=== PATIENT | female | born 1985 | race Caucasian/White ===

== ENCOUNTER 2017-10-16 23:20 | Emergency (ER) | payer MEDICAID ==
--- NOTE | 2017-10-16 23:27 | EDPHY ---
H & P Stated Complaint: arm pain Time Seen by Provider: 10/16/17 23:26 HPI/ROS: 32 yo F noticed swelling in her armpit earlier today and squeezed it, she states she got alot of pus out of it, but now has pain in her inner upper arm adjacent to the area that she squeezed. She feels fatigued, chills and possible fever. No known allergies to antibiotics. Review of systems as per hpi General no fever , pos chills, pos fatigue HEENT no eye pain no eye discharge. No eye redness, no sore throat Respiratory no cough, no shortness of breath Cardiac no chest pain, no peripheral edema GI no abdominal pain, no diarrhea, no constipation, no nausea, no vomiting no flank pain, no hematuria, no dysuria Musculoskeletal no myalgias, no joint pain Heme no easy bruising, no easy bleeding Endo no polyuria, no polydipsia Skin pos rashes, no pruritus Neuro no syncope, no dizziness, no headaches Psych is no suicidal ideation, no homicidal ideation Source: Patient Exam Limitations: No limitations - Personal History LMP (Females 10-55): Unknown Current Tetanus Diphtheria and Acellular Pertussis (TDAP): Yes - Medical/Surgical History Hx Asthma: No Hx Chronic Respiratory Disease: No Hx Diabetes: No Hx Cardiac Disease: No Hx Renal Disease: No Hx Cirrhosis: No Hx Alcoholism: No Hx HIV/AIDS: No Hx Splenectomy or Spleen Trauma: No Other PMH: ulcertive colitis, multiple colostomies, pulmonary embolus,. prior hx of opiod dependence - Family History Significant Family History: No pertinent family hx - Social History Smoking Status: Current every day smoker Alcohol Use: None Drug Use: None - Physical Exam Exam: 32 yo F alert and oriented in mild distress secondary to arm pain temp 37.6, tachycardia at,nc neck supple lungs cta bilat heart rapid rate rr abd nabs soft ext no cce except right inner upper arm indurated erythematous area 3 x 6 cm extending from axilla, at upper most part of rash there is a small sal, where there is evidence of prior drainage Constitutional: Initial Vital Signs Temperature (C) 37.6 C 10/16/17 23:20 Heart Rate 116 H 10/16/17 23:20 Respiratory Rate 16 10/16/17 23:20 Blood Pressure 149/109 H 10/16/17 23:20 O2 Sat (%) 96 10/16/17 23:20 O2 Delivery Mode Room Air Allergies/Adverse Reactions: No Known Allergies Allergy (Unverified 10/16/17 23:36) Home Medications: Medication Instructions Recorded Amitriptyline HCl 10/16/17 Buspar (*) 10/16/17 Cymbalta 10/16/17 Gabapentin 10/16/17 Cephalexin 500 mg PO QID 7 Days #28 tablet 10/17/17 Sulfamethox/Tmp 800/160 mg 1 tab PO BID #14 tab 10/17/17 [Bactrim Ds] Medical Decision Making Procedures: Needle aspiration Cleansed with alcohol wipes. 1 cc of 2% lidocaine subcutaneous, followed by 18 gauge needle aspiration , no drainage on aspiration Area bandaged Pt tolerated well ED Course/Re-evaluation: Pt seen and evaluated for rash and arm pain. Abscess drained by patient earlier today, now with residual induration, cellulitis, no area of fluctuance to be drained Labs sent Lactate wnl BMP CBC Pt given 2 gm Vancomycin given Acetaminophen and ibuprofen for pain, fever Imp Abscess drained at home, now with cellulitis Plan Home on antibiotics to cover mrsa warm compresses follow up with pcp if able to Return if increasing swelling, pain Infection may resolve with antibiotics or may require drainage in a few days. Differential Diagnosis: Differential diagnosis considered but not limited to: Abscess, abscess with cellulitis, cellulitis, sepsis, bacteremia - Data Points Laboratory Results: Laboratory Results 10/17/17 00:25 10/17/17 10/17/17 10/17/17 00:37 00:36 00:25 WBC 14.83 10^3/uL H 10^3/uL (3.80-9.50) RBC 4.42 10^6/uL 10^6/uL (4.18-5.33) Hgb 12.2 g/dL L g/dL (12.6-16.3) Hct 37.7 % L % (38.0-47.0) MCV 85.3 fL fL (81.5-99.8) MCH 27.6 pg L pg (27.9-34.1) MCHC 32.4 g/dL g/dL (32.4-36.7) RDW 14.9 % % (11.5-15.2) Plt Count 186 10^3/uL 10^3/uL (150-400) MPV 11.3 fL fL (8.7-11.7) Neut % (Auto) 81.7 % H % (39.3-74.2) Lymph % (Auto) 11.0 % L % (15.0-45.0) [place] % (Auto) 6.4 % % (4.5-13.0) Eos % (Auto) 0.4 % L % (0.6-7.6) Baso % (Auto) 0.2 % L % (0.3-1.7) Nucleat RBC Rel Count 0.0 % % (0.0-0.2) Absolute Neuts (auto) 12.11 10^3/uL H 10^3/uL (1.70-6.50) Absolute Lymphs (auto) 1.63 10^3/uL 10^3/uL (1.00-3.00) Absolute Monos (auto) 0.95 10^3/uL H 10^3/uL (0.30-0.80) Absolute Eos (auto) 0.06 10^3/uL 10^3/uL (0.03-0.40) Absolute Basos (auto) 0.03 10^3/uL 10^3/uL (0.02-0.10) Absolute Nucleated RBC 0.00 10^3/uL 10^3/uL (0-0.01) Immature Gran % 0.3 % % (0.0-1.1) Immature Gran # 0.05 10^3/uL 10^3/uL (0.00-0.10) POC Sodium 139 mEq/L mEq/L (135-145) POC Potassium 3.6 mEq/L mEq/L (3.3-5.0) POC Chloride 105.0 mEq/L mEq/L (97-110) POC Total CO2 22 mEq/L mEq/L (22-31) POC BUN 16 mg/dL mg/dL (7-23) POC Creatinine 0.9 mg/dL mg/dL (0.6-1.0) POC Glucose 89 mg/dL mg/dL (70-100) POC Lactic Acid Chase 0.9 mmol/L mmol/L (0.7-2.1) POC Calcium 9.2 mg/dL mg/dL (8.5-10.4) Medications Given: Discontinued Medications Acetaminophen (Tylenol) 1,000 mg PO EDNOW ONE Stop: 10/17/17 00:23 Last Admin: 10/17/17 00:45 Dose: 1,000 mg Diphenhydramine HCl (Benadryl Injection) 25 mg IVP EDNOW ONE Stop: 10/17/17 00:35 Last Admin: 10/17/17 00:45 Dose: 25 mg Diphenhydramine HCl (Benadryl Injection) 25 mg IVP EDNOW ONE Stop: 10/17/17 03:09 Last Admin: 10/17/17 03:16 Dose: 25 mg Sodium Chloride (Ns) 1,000 mls @ 0 mls/hr IV ONCE ONE PRN Reason: Wide Open Stop: 10/16/17 23:46 Last Admin: 10/17/17 00:45 Dose: 1,000 mls Vancomycin HCl 2 gm/ Sodium (Chloride) 500 mls @ 250 mls/hr IV EDNOW ONE PRN Reason: Protocol Stop: 10/17/17 01:45 Last Admin: 10/17/17 00:47 Dose: 500 mls Ibuprofen (Motrin) 600 mg PO EDNOW ONE Stop: 10/17/17 00:23 Last Admin: 10/17/17 00:44 Dose: 600 mg Point of Care Test Results: Chemistry 10/17/17 00:36 POC Sodium 139 mEq/L mEq/L (135-145) POC Potassium 3.6 mEq/L mEq/L (3.3-5.0) POC Chloride 105.0 mEq/L mEq/L (97-110) POC Total CO2 22 mEq/L mEq/L (22-31) POC BUN 16 mg/dL mg/dL (7-23) POC Creatinine 0.9 mg/dL mg/dL (0.6-1.0) POC Glucose 89 mg/dL mg/dL (70-100) POC Calcium 9.2 mg/dL mg/dL (8.5-10.4) Blood Gas/Lactic Acid-Venous 10/17/17 00:37 POC Lactic Acid Chase 0.9 mmol/L mmol/L (0.7-2.1) Departure - Departure Disposition: Home, Routine, Self-Care Clinical Impression: Cutaneous abscess of axilla, Cellulitis Condition: Good Instructions: Cellulitis (ED), Abscess (ED) Additional Instructions: acetaminophen every 4 hours as needed for pain or fever ibuprofen every 6 hours as needed for pain, must take with food warm compresses antibiotics- Cephalexin 4 times a day and Bactrim DS twice a day Referrals: Patient,NotPresent [Primary Care Provider] - As per Instructions [facility] [Provider Group] - As per Instructions Prescriptions: Cephalexin 500 mg PO QID 7 Days #28 tablet Sulfamethox/Tmp 800/160 mg [Bactrim Ds] 1 tab PO BID #14 tab
[2017-10-16] MEDS ORDERED: NS 1,000 ML IV ONE (23:45)
[2017-10-17] MEDS ORDERED: ACETAMINOPHEN 500 MG TAB PO ONE (00:22)
[2017-10-17] MEDS ORDERED: IBUPROFEN 600 MG TAB PO ONE (00:22)
[2017-10-17] MEDS: VANCOMYCIN 2 GM in NS 500 ML IV ONE ×2 (00:46→00:47)
[2017-10-17 02:06] LABS: PLATELET COUNT 186 10^3/uL (150-400)
[2017-10-17 04:39] VITALS: BP 104/73
== END 2017-10-17 04:39 | disposition home or self-care (01) ==
LOC: CED 23:20
PROC: 0H9BXZZ Drainage of Right Upper Arm Skin, External Approach (ICD-10-PCS; principal; 2017-10-16)
DX: L02.411 Cutaneous abscess of right axilla (principal); F17.200 Nicotine dependence, unspecified, uncomplicated
CPT/HCPCS: 80048-PO; 83605-PO; 96365; 96366; J1200; J3370

== ENCOUNTER 2017-10-19 08:31 | Emergency (ER) | payer MEDICAID ==
[2017-10-19] MEDS ORDERED: VANCOMYCIN 1 GM in NS 250 ML IV ONE (09:26)
--- NOTE | 2017-10-19 10:58 | EDPHY ---
H & P Time Seen by Provider: 10/19/17 08:38 HPI/ROS: CHIEF COMPLAINT: Under arm infection HISTORY OF PRESENT ILLNESS: Patient was seen on Thursday at this facility for draining abscess under her right armpit. She states that it began on Thursday and did have some draining that day prior to coming into the emergency department. She came in later in the evening on Thursday and needle aspiration was attempted without purulent drainage return. She was given IV antibiotics at that time and started on oral antibiotics. She states that she has been taking oral antibiotics as prescribed. She states that Thursday she was maybe a little bit better but not much. By Thursday there is increased redness, pain, swelling to the area as well as some itchy skin distal to the axilla. She has felt a little feverish in measured temperatures up to 99. She has had some consistent and persistent nausea but no vomiting. She has had no more spontaneous drainage from the axilla. REVIEW OF SYSTEMS: Contents of 10 point review of systems otherwise negative except for what is mentioned in HPI. General Appearance: Alert, no distress. Eyes: Pupils equal and round no icterus Respiratory: No respiratory distress Neurological: Awake, alert, no focal deficits. Skin: Warm and dry. Right axilla swollen, erythematous, palpable fluctuance diffusely. Additionally she has erythematous rash that spreads from the area of the abscesses to the distal mid upper arm. This rash is itchy as well as somewhat tender per patient's description. No bull eye, necrosis, crepitus. Musculoskeletal: Neck is supple nontender. Extremities are symmetrical, full range of motion, distal intact. Psychiatric: Patient is oriented X 3, there is no agitation. Medical/surgical history: Anxiety and depression. History of opiate abuse. History of PE treated with Xarelto for 6 months. Social history: Currently living in a treatment facility. Uses tobacco. Smoking Status: Current every day smoker Constitutional: Initial Vital Signs Temperature (C) 37.0 C 10/19/17 08:49 Heart Rate 103 H 10/19/17 08:49 Respiratory Rate 20 10/19/17 08:49 Blood Pressure 131/99 H 10/19/17 08:49 O2 Sat (%) 97 10/19/17 08:49 O2 Delivery Mode Room Air Allergies/Adverse Reactions: No Known Allergies Allergy (Verified 10/19/17 08:48) Home Medications: Medication Instructions Recorded Amitriptyline HCl 10/16/17 Buspar (*) 10/16/17 Cymbalta 10/16/17 Gabapentin 10/16/17 Cephalexin 500 mg PO QID 7 Days #28 tablet 10/17/17 Sulfamethox/Tmp 800/160 mg 1 tab PO BID #14 tab 10/17/17 [Bactrim Ds] Naltrexone 10/19/17 Medical Decision Making Procedures: Procedure: Abscess drainage at 11:15 a.m.. The patient's abscess was located on the right axilla. I obtained verbal consent from the patient to drain the abscess who was informed about the possibility of bleeding and pain. 5 mils of bupivacaine 1% with epi infiltrated. The abscess was incised with #15 scalpel and a large amount, 8-10 mls, of purulent drainage was expressed. I irrigated the wound and placed some packing. The patient tolerated the procedure well. The procedure was performed by myself. Differential Diagnosis: Differential diagnosis includes but is not limited to abscess, cellulitis, hidradenitis suppurativa, deep space infection, lymphadenopathy. After evaluation and treatment in the emergency department including incision and drainage large amount of purulent drainage was expressed from the multiple loculated abscesses in the right axilla. Surrounding/distal erythema more likely contact dermatitis than cellulitis but will continue outpatient antibiotics. Discussed wound care with patient and need for 48 hr wound recheck. Likely she will come here for that but may go to her primary care physician. Packing can be removed at that time if appropriate improvement is noted. Low suspicion for deep space involvement, necrotizing fasciitis or other surgical condition. Stable for discharge. - Data Points Medications Given: Discontinued Medications Diphenhydramine HCl (Benadryl Injection) 50 mg IVP EDNOW ONE Stop: 10/19/17 09:27 Last Admin: 10/19/17 10:14 Dose: 50 mg Vancomycin HCl 1 gm/ Sodium (Chloride) 250 mls @ 250 mls/hr IV EDNOW ONE PRN Reason: Protocol Stop: 10/19/17 10:25 Last Admin: 10/19/17 10:05 Dose: 250 mls Departure - Departure Disposition: Home, Routine, Self-Care Clinical Impression: Abscess Condition: Good Instructions: Abscess (ED) Additional Instructions: Keep area clean and covered as discussed. You can take a shower and get the area wet. Dry the wound and the packing material well before applying a bandage. If the packing comes out just cut the gauze but leave about 1 in on the surface. Return to the emergency department or follow up with her primary care physician in 48 hr, Thursday morning, without fail for wound check. Return earlier if you developed fevers, chills, other concerns of worsening infection. Continue antibiotics as previously prescribed. Referrals: Cathi Dash MD [Primary Care Provider] - As per Instructions
[2017-10-19 12:01] VITALS: BP 146/75
== END 2017-10-19 12:01 | disposition home or self-care (01) ==
LOC: CED 08:31
PROC: 0H9BXZZ Drainage of Right Upper Arm Skin, External Approach (ICD-10-PCS; principal; 2017-10-19)
DX: L02.411 Cutaneous abscess of right axilla (principal); F17.200 Nicotine dependence, unspecified, uncomplicated
CPT/HCPCS: 96365; J1200; J3370

== ENCOUNTER 2017-12-27 15:27 | Emergency (ER) | payer MEDICAID ==
[2017-12-27] MEDS ORDERED: ONDANSETRON 4 MG/2 ML VIAL IVP ONE (16:19)
[2017-12-27] MEDS ORDERED: NS 1,000 ML IV ONE (16:19)
--- NOTE | 2017-12-27 16:19 | EDPHY ---
H & P Stated Complaint: Epigastric abd pain x 2 days and itchy rash "all over body" Time Seen by Provider: 12/27/17 15:52 HPI/ROS: CHIEF COMPLAINT: Abdominal pain, dry itchy hands HISTORY OF PRESENT ILLNESS: 32-year-old female with history of ulcerative colitis which has resulted in multiple abdominal surgeries and patient states that she has had a total colectomy and has a internal pouch as well as having an internal hernia presents reporting 2 days of epigastric pain. Patient has been quite nauseous but not vomited. She states she has not had a bowel movement since last night which is unusual for her. Denies urinary complaints. No fevers or chills. No cold or cough symptoms. No flank pain. Patient does report that she has noticed a rash on her hands, especially on the right hand which is dry and itchy. No fever, chills, chest pain, shortness of breath, palpitations, vomiting, diarrhea, urinary complaints, headache, lightheadedness. REVIEW OF SYSTEMS: A comprehensive 10 system review of systems was reviewed and is otherwise negative aside from elements mentioned in the history of present illness and medical decision making. PAST MEDICAL HISTORY: Ulcerative colitis, anxiety, prior history of opiate addiction. SOCIAL HISTORY: Nonsmoker, no alcohol, no illicit drug use. 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 Recently moved here from [place]. VITAL SIGNS Reviewed by me. GENERAL: Well-developed, well-nourished, resting comfortably in no respiratory distress. Seems slightly anxious. HEENT: Atraumatic. Eyes: No icterus, no injection. Mouth: moist mucous membranes. No erythema or lesions. Neck: supple with no adenopathy. LUNGS: Clear to auscultation bilaterally, no wheezes, rhonchi or rales. CARDIAC: Tachycardic but regular. No rubs murmurs or gallops. ABDOMEN: Nondistended. Tenderness in the epigastrium and slight right upper quadrant. Multiple surgical scars including large midline abdominal incision. Incisional hernias palpable. BACK: No CVA tenderness. EXTREMITIES: No trauma. No edema. Range of motion is normal throughout. NEURO: Alert and oriented, grossly nonfocal. SKIN: Warm and dry, no rash. PSYCHIATRIC: Normal mentation, no agitation. - Personal History LMP (Females 10-55): 15-21 Days Ago Current Tetanus Diphtheria and Acellular Pertussis (TDAP): Yes Tetanus Vaccine Date: within 10 years - Medical/Surgical History Hx Asthma: No Hx Chronic Respiratory Disease: No Hx Diabetes: No Hx Cardiac Disease: No Hx Renal Disease: No Hx Cirrhosis: No Hx Alcoholism: No Hx HIV/AIDS: No Hx Splenectomy or Spleen Trauma: No Other PMH: ulcertive colitis, multiple colostomies, pulmonary embolus,. prior hx of opiod dependence, depression, anxiety, incisional hernia - Social History Smoking Status: Former smoker Constitutional: Initial Vital Signs Temperature (C) 36.7 C 12/27/17 15:40 Heart Rate 107 H 12/27/17 15:40 Respiratory Rate 16 12/27/17 15:40 Blood Pressure 153/113 H 12/27/17 15:40 O2 Sat (%) 99 12/27/17 15:40 O2 Delivery Mode Room Air Allergies/Adverse Reactions: No Known Allergies Allergy (Verified 12/27/17 15:40) Home Medications: Medication Instructions Recorded Amitriptyline HCl 10/16/17 Buspar (*) 10/16/17 Cymbalta 10/16/17 Gabapentin 10/16/17 Hydroxyzine HCl 12/27/17 Ondansetron Odt [Zofran Odt 4 mg 4 mg PO Q6 PRN #8 tab 12/27/17 (RX)] Medical Decision Making - Diagnostics Imaging Results: Imaging Impressions Abdomen CT 12/27/17 16:19 Impression: 1. Extensive postoperative changes are seen with probable scattered areas of equivocal/minimal small bowel obstruction, presumably related to postoperative change. 2. Heterogeneous mass in the right adnexa could reflect ovarian abnormality or represent a pedunculated uterine fibroid. Comparison with prior studies would be of value. 3. Anterior abdominal wall hernia containing gas-filled dilated bowel loop with no associated obstruction. 4. See above report for additional findings. Results called and discussed with Dr. Rose Mary Damon on December 27, 2017 at 1817 hours. ED Course/Re-evaluation: 32-year-old female with history of ulcerative colitis, status post total colectomy, presents with epigastric pain and concerns regarding possible obstruction. She does have an incisional hernia that is palpable on examination , which is easily reducible. Patient IV establishing received a L normal saline. She reports some issues with IV contrast and has use Benadryl in the past. She was given Benadryl 25 mg , Solu-Medrol 125 mg, and Ativan 1 mg. She declined narcotics given her history of opiate addiction. She received Toradol 15 mg once her creatinine was available. Patient has normal white count. Bedside i-STAT testing initially demonstrated a potassium of 2.6. However this was confirmed utilizing the bedside basic metabolic panel tests which report a potassium of 3.4. On return from CT scan, the patient reports that the itching in her hand is somewhat worse. She was given additional 25 mg of Benadryl. 6:00 p.m.: Patient is feeling better. We are awaiting the CT scan results. CT scan demonstrates some minimally dilated loops of small bowel in the pelvis which could represent a very early bowel obstruction but no obvious mechanical bowel obstruction. Patient's hernia is not causing any bowel obstruction. Of note the uterus appears to have a pedunculated fibroid which may be causing some compression of the small bowel. Patient's course was discussed with Dr. Monae who reviewed the films. He reports that the findings to suggest small bowel obstruction are quite minimal on the CT scan. Patient looks quite well to me here. She is comfortable being discharged with instructions regarding a bland diet to advance as tolerated, Zofran for nausea, instructions regarding Tylenol or ibuprofen as needed for pain, and a rectal suppository to stimulate passage of gas and stool. This course was also discussed with the patient's primary care physician on-call , Dr. Donal Rosario. They will see her within the next 1-2 days and follow-up. Patient herself has had bowel obstructions in the past and understands reasons to return urgently. Please the discharge instructions Differential Diagnosis: After obtaining the patient's history and performing an examination, differential diagnosis considered included but was not limited to appendicitis, bowel obstruction, gastroenteritis, intra-abdominal abscess, gastritis, pancreatitis, kidney stones, urinary tract infections and other causes. - Data Points Laboratory Results: 12/27/17 12/27/17 12/27/17 16:57 16:29 16:09 POC Hgb 13.9 gm/dL gm/dL (12.6-16.3) POC Hct 41 % % (38-47) POC Sodium 140 mEq/L mEq/L 140 mEq/L mEq/L (135-145) (135-145) POC Potassium 3.4 mEq/L mEq/L 2.6 mEq/L L* mEq/L (3.3-5.0) (3.3-5.0) POC Chloride 103 mEq/L mEq/L 101.0 mEq/L mEq/L (97-110) (97-110) POC Total CO2 21 mEq/L L mEq/L (22-31) POC BUN 29 mg/dL H mg/dL 12 mg/dL mg/dL (7-23) (7-23) POC Creatinine 0.7 mg/dL mg/dL 0.8 mg/dL mg/dL (0.6-1.0) (0.6-1.0) POC Glucose 93 mg/dL mg/dL 92 mg/dL mg/dL (70-100) (70-100) POC Calcium 9.5 mg/dL mg/dL (8.5-10.4) Lipase 79 IU/L IU/L (23-300) Medications Given: Discontinued Medications Bisacodyl (Dulcolax Rectal) 10 mg MS EDNOW ONE Stop: 12/27/17 18:45 Last Admin: 12/27/17 19:03 Dose: 10 mg Diphenhydramine HCl (Benadryl Injection) 25 mg IVP EDNOW ONE Stop: 12/27/17 16:21 Last Admin: 12/27/17 16:30 Dose: 25 mg Diphenhydramine HCl (Benadryl Injection) 25 mg IVP EDNOW ONE Stop: 12/27/17 17:18 Last Admin: 12/27/17 17:19 Dose: 25 mg Diphenhydramine HCl (Benadryl) 25 mg PO EDNOW ONE Stop: 12/27/17 19:09 Last Admin: 12/27/17 19:13 Dose: 25 mg Sodium Chloride (Ns) 1,000 mls @ 0 mls/hr IV EDNOW ONE; Wide Open PRN Reason: Protocol Stop: 12/27/17 16:20 Last Admin: 12/27/17 16:30 Dose: 1,000 mls Ketorolac Tromethamine (Toradol) 15 mg IVP EDNOW ONE Stop: 12/27/17 17:12 Last Admin: 12/27/17 17:17 Dose: 15 mg Lorazepam (Ativan Injection) 1 mg IVP EDNOW ONE Stop: 12/27/17 16:21 Last Admin: 12/27/17 16:39 Dose: 1 mg Lorazepam (Ativan 1 Mg Prepack#4) 1 btl TAKEHOME EDNOW ONE Stop: 12/27/17 19:09 Last Admin: 12/27/17 19:13 Dose: 1 btl Methylprednisolone Sodium Succinate (Solu-Medrol) 125 mg IVP EDNOW ONE Stop: 12/27/17 16:21 Last Admin: 12/27/17 16:35 Dose: 125 mg Ondansetron HCl (Zofran) 4 mg IVP EDNOW ONE Stop: 12/27/17 16:20 Last Admin: 12/27/17 16:33 Dose: 4 mg Ondansetron HCl (Zofran Odt 4 Mg Prepack#2) 1 btl TAKEHOME EDNOW ONE Stop: 12/27/17 18:45 Last Admin: 12/27/17 19:02 Dose: 1 btl Potassium Chloride (Klor-Con) 40 meq PO ONCE ONE Stop: 12/27/17 16:47 Last Admin: 12/27/17 17:14 Dose: Not Given Potassium Chloride (Klor-Con) 40 meq PO ONCE ONE Stop: 12/27/17 18:43 Last Admin: 12/27/17 19:03 Dose: 40 meq Point of Care Test Results: CBC CBC Collection Date 12/27/17 CBC Collection Time 16:09 WBC 9.3 RBC 4.77 HGB 13.4 HCT 40.4 PLT 208 Neut # 7.1 Neut 75.8 LYMPH # 1.7 LYMPH 18.6 Other WBC # 0.5 Other WBC 5.6 MCV 84.7 Chemistry 12/27/17 12/27/17 16:57 16:29 POC Sodium 140 mEq/L mEq/L 140 mEq/L mEq/L (135-145) (135-145) POC Potassium 3.4 mEq/L mEq/L 2.6 mEq/L L* mEq/L (3.3-5.0) (3.3-5.0) POC Chloride 103 mEq/L mEq/L 101.0 mEq/L mEq/L (97-110) (97-110) POC Total CO2 21 mEq/L L mEq/L (22-31) POC BUN 29 mg/dL H mg/dL 12 mg/dL mg/dL (7-23) (7-23) POC Creatinine 0.7 mg/dL mg/dL 0.8 mg/dL mg/dL (0.6-1.0) (0.6-1.0) POC Glucose 93 mg/dL mg/dL 92 mg/dL mg/dL (70-100) (70-100) POC Calcium 9.5 mg/dL mg/dL (8.5-10.4) ISTAT H&H 12/27/17 16:57 POC Hgb 13.9 gm/dL gm/dL (12.6-16.3) POC Hct 41 % % (38-47) Urine Collection Date 12/27/17 Collection Time 16:46 HCG Results Negative Urine Dip Collection Date 12/27/17 Collection Time 16:46 Specific [place] (1.002-1.030) 1.015 PH (5.0-7.5) 5.5 Leukocytes (Negative) Negative Nitrites (Negative) Negative Protein (Negative) Negative Glucose (Negative) Negative Ketones (Negative) Negative Urobilnogen (0.2-1.0 EU) 0.2 Bilirubin (Negative) Negative Blood (Negative) Negative Departure - Departure Disposition: Home, Routine, Self-Care Clinical Impression: Abdominal pain Qualifiers: Abdominal location: right upper quadrant Qualified Code(s): R10.11 - Right upper quadrant pain Abdominal hernia Qualifiers: Hernia type: incisional Obstruction and gangrene presence: without obstruction or gangrene Qualified Code(s): K43.2 - Incisional hernia without obstruction or gangrene; K43.91 - Incisional hernia, without obstruction or gangrene Condition: Good Instructions: Lorazepam (By mouth), Ondansetron (By mouth), Laxatives, Stimulant (Into the rectum), Acute Nausea and Vomiting (ED), Epigastric Pain (ED ) Additional Instructions: Okay to take Zofran as needed for any nausea. You been given a suppository which may help stimulate the bowels. Please drink plenty of fluid to stay hydrated. Regular activity will also help to move the bowels. Please follow up with primary care physician within the next 1-2 days. I recommend that you received an upper GI series with small-bowel follow-through within the next 1-2 weeks to further evaluate your bowel anatomy. I also recommend that you obtain reports of your previous CT scans from [place]. I recommend that you follow up with General Surgery for evaluation of your midline incisional hernia and potential repair. You may use a small amount of hydrocortisone 1% cream on the rash on her hands. I also recommend a thick, moisture arising hand lotion such as Cerave. If you are worsening despite the above measures, especially if you develop any vomiting, abdominal distention, or other concerns, please return to the emergency department or seek care urgently. Referrals: Baljit Tejeda MD [Medical Doctor] - As per Instructions Mark Walter DO [Primary Care Provider] - As per Instructions Prescriptions: Ondansetron Odt [Zofran Odt 4 mg (RX)] 4 mg PO Q6 PRN #8 tab PRN Reason: Nausea
[2017-12-27] MEDS ORDERED: methylPREDNISolone SOD SUCC 125 MG/2 ML VIAL IVP ONE (16:20)
[2017-12-27] MEDS ORDERED: LORazepam 2 MG/ML INJ IVP ONE (16:20)
[2017-12-27] MEDS ORDERED: IOPAMIDOL (ISOVUE-300) 100 ML BTL ONE (16:33)
[2017-12-27] MEDS ORDERED: POTASSIUM CL 20 MEQ TAB PO ONE ×2 (16:46→18:42)
[2017-12-27] MEDS ORDERED: KETOROLAC 15 MG/1 ML SDV IVP ONE (17:11)
[2017-12-27] MEDS ORDERED: ONDANSETRON 4MG PREPACK#2 BTL TAKEHOME ONE (18:44)
[2017-12-27] MEDS ORDERED: BISACODYL 10 MG SUPP PR ONE (18:44)
[2017-12-27] MEDS ORDERED: LORAZEPAM 1 MG PREPACK#4 BTL TAKEHOME ONE (19:08)
[2017-12-27] MEDS ORDERED: diphenhydrAMINE 25 MG CAP PO ONE (19:08)
[2017-12-27 19:17] VITALS: BP 150/101
== END 2017-12-27 19:15 | disposition home or self-care (01) ==
LOC: CED 15:27
DX: R10.11 Right upper quadrant pain (principal); K43.2 Incisional hernia without obstruction or gangrene; D25.9 Leiomyoma of uterus, unspecified; E86.9 Volume depletion, unspecified; Z93.3 Colostomy status; Z90.49 Acquired absence of other specified parts of digestive tract
CPT/HCPCS: 74177-PO; 80048-PO; 82435-PO; 82565-PO; 82947-PO; 84132-PO; 84295-PO; 84520-PO; 85014-PO; 96374; J1200; J1885; J2060; J2405; J2930; Q9967

== ENCOUNTER 2018-04-11 21:34 | Emergency (ER) | payer MEDICAID | END 2018-04-12 00:54 | disposition home or self-care (01) | LOC: CED 04-12 00:54 ==